=== PATIENT | female | born 1990 | race African-American/Black ===

== ENCOUNTER 2017-12-18 15:18 | Emergency (ER) | payer OTHER ==
[~2017-12-18] VITALS: Ht 160 cm; Wt 113.7 kg
[~2017-12-18 15:18] MED LIST: BCP TD; BIRTH CONTROL IMPLAN; CELEXA; GLUCOPHAGE500 MG/TAB PO; LEXAPRO 5MG5 MG PO; LORTAB 5/500 501 TAB PO; NORCO 325 MG-7.1 TAB PO
[2017-12-18 15:24] VITALS: BP 166/85; TEMP 99
[2017-12-18 16:40] VITALS: PULSE 86
== END 2017-12-18 16:40 | disposition home or self-care (01) ==
LOC: COL.ER 15:18
DX: S09.90XA Unspecified injury of head, initial encounter (principal); E11.9 Type 2 diabetes mellitus without complications; F41.9 Anxiety disorder, unspecified; F32.9 Major depressive disorder, single episode, unspecified; Z79.84 Long term (current) use of oral hypoglycemic drugs; W20.8XXA Other cause of strike by thrown, projected or falling object, initial encounter